=== PATIENT | female | born 1980 | race Caucasian/White ===

== ENCOUNTER 2019-06-26 08:45 | Outpatient (RCR) | payer BC ==
[~2019-06-26 08:45] MED LIST: COLACE50 MG PO; MOTRIN 600600 MG/TAB PO; PERCOCET 325 MG1 TA2 PO; PRENATAL1 TA1 PO; VALTREX 50500 MG/TAB PO
== END 2019-09-24 | disposition home or self-care (01) ==
LOC: WSPT
DX: Z01.818 Encounter for other preprocedural examination (principal)

== ENCOUNTER 2019-09-26 16:02 | Outpatient (RCR) | payer BC | END 2019-12-25 | disposition home or self-care (01) | LOC: WSPT | DX: Z98.890 Other specified postprocedural states (principal) ==

== ENCOUNTER 2019-10-04 12:30 | Outpatient (RCR) | payer BC | END 2019-10-16 | disposition home or self-care (01) | LOC: WSC | DX: Z98.890 Other specified postprocedural states (principal) | CPT/HCPCS: G0283-GP ==

== ENCOUNTER 2019-12-28 11:45 | Outpatient (RCR) | payer BC | END 2020-01-18 | disposition still patient (30) | LOC: WSC | DX: Z98.890 Other specified postprocedural states (principal) ==

== ENCOUNTER 2020-02-01 11:45 | Outpatient (RCR) | payer BC | END 2020-03-27 | disposition home or self-care (01) | LOC: WSC | DX: Z98.890 Other specified postprocedural states (principal) ==

== ENCOUNTER 2020-03-29 10:15 | Outpatient (RCR) | payer BC | END 2020-05-01 | disposition home or self-care (01) | LOC: WSC | DX: Z96.7 Presence of other bone and tendon implants (principal) ==

== ENCOUNTER 2020-04-25 11:15 | Outpatient (RCR) | payer BC | END 2020-05-13 | disposition home or self-care (01) | LOC: WSC | DX: M25.562 Pain in left knee (principal); Z98.890 Other specified postprocedural states ==

== ENCOUNTER 2022-02-04 13:45 | Outpatient (RCR) | payer BC | END 2022-02-06 | disposition home or self-care (01) | LOC: PT.GENESIS | DX: Z96.652 Presence of left artificial knee joint (principal) | CPT/HCPCS: G0283-GP ==